=== PATIENT | female | born 1945 | race Two or more races ===

== ENCOUNTER → 2020-04-28 | Outpatient (CLI) | payer OTHER ==
[~2020-04-28] MED LIST: EVISTA60 MG
== END | disposition home or self-care (01) ==
LOC: RAD 16:01
PROVIDERS: ATTEND Family Medicine
DX: S30.0XXA Contusion of lower back and pelvis, initial encounter (principal); S43.001A Unspecified subluxation of right shoulder joint, initial encounter

== ENCOUNTER 2020-12-17 10:31 | Outpatient (CLI) | payer OTHER | END 2020-12-17 10:52 | disposition home or self-care (01) | LOC: SONOGRAMA 10:31 → MAMO-SONO 14:00 | PROVIDERS: ATTEND Family Medicine | DX: N10 Acute pyelonephritis (principal) ==

== ENCOUNTER 2024-01-30 07:58 | Outpatient (CLI) | payer OTHER ==
[2024-01-30 08:58] LABS: HEMATOCRIT 36.8 % (36.0-45.00); HEMOGLOBIN 12.9 g/dL (12.0-15.00); MEAN CELL VOLUME 85.4 fL (80.00-100.00); MEAN CORPUSCULAR HGB CONC 35.1 g/dl (32.0-36.0); PLATELET COUNT 324 K/uL (150-450); RED BLOOD COUNT 4.31 M/uL (4.00-6.00); RED CELL DISTRIBUTION WIDTH 12.9 % (11.5-14.5)
[2024-01-30 09:16] LABS: INR 1.02; PARTIAL THROMBOPLASTIN TIME 30.8 SECONDS (22.0-34.0); PROTHROMBIN TIME 10.7 SECONDS (9.0-11.5)
[2024-01-30 09:35] LABS: ALBUMIN 2.9 gm/dL (3.4-5.0); BILIRUBIN TOTAL 0.63 mg/dL (0.3-1.2); CALCIUM 8.7 mg/dL (8.5-10.1); CREATININE SERUM 0.57 mg/dL (0.55-1.02); GFR 102.85; GLOBULINA 3.2 G/DL (2.4-3.5); POTASSIUM 3.98 mEq/L (3.5-5.1); TOTAL PROTEIN 6.1 gm/dL (6.4-8.2)
== END 2024-01-30 08:08 | disposition home or self-care (01) ==
LOC: LAB 07:58
PROVIDERS: ATTEND Ophthalmology
DX: D68.8 Other specified coagulation defects (principal); H25.013 Cortical age-related cataract, bilateral; Z01.811 Encounter for preprocedural respiratory examination; I10 Essential (primary) hypertension

== ENCOUNTER 2024-07-26 19:29 | Emergency (ER) | payer OTHER ==
[~2024-07-26] VITALS: Ht 157.5 cm; Wt 49.9 kg
[2024-07-26] MEDS ORDERED: NORVASC2.5 M1 (19:35)
[2024-07-26] MEDS ORDERED: PLAVIX75 MG (19:35)
[2024-07-26] MEDS ORDERED: ZESTRIL2.5 MG (19:36)
[2024-07-26] MEDS ORDERED: TRAMADOL HCL 50 MG TABLET PO STA (23:06)
[2024-07-26] MEDS ORDERED: IBUprofen 100 MG/5 ML-120ML ML PO STA (23:12)
[2024-07-26] MEDS ORDERED: IBUprofen 20 MG/ML BLIST.PACK (5ML) PO ONE (23:20)
== END 2024-07-26 23:24 | disposition home or self-care (01) ==
LOC: ER 19:31
DX: S62.101A Fracture of unspecified carpal bone, right wrist, initial encounter for closed fracture (principal); W19.XXXA Unspecified fall, initial encounter; Y93.89 Activity, other specified; Y92.89 Other specified places as the place of occurrence of the external cause; Y99.8 Other external cause status; M25.531 Pain in right wrist

== ENCOUNTER 2024-11-12 10:24 | Outpatient (CLI) | payer OTHER ==
[~2024-11-12 10:24] MED LIST changes: +NORVASC2.5 M1; +PLAVIX75 MG; +ZESTRIL2.5 MG
== END 2024-11-12 10:30 | disposition home or self-care (01) ==
LOC: RAD 10:24
PROVIDERS: ATTEND Orthopaedic Surgery
DX: S52.571D Other intraarticular fracture of lower end of right radius, subsequent encounter for closed fracture with routine healing (principal)

== ENCOUNTER → 2025-06-25 | Emergency (ER) | payer OTHER ==
[~2025-06-25] VITALS: Ht 157.5 cm; Wt 54.4 kg
[~2025-06-25] MED LIST changes: +OXYBUTYNIN CHLOR5 MG PO; +SODIUM CHLORIDE 0.45 % 1,000 ML IV STA; +ZOLPIDEM TARTRA10 MG PO
[2025-06-25 11:22] LABS: BASO % 0.4 % (0.1-1.2); EOS # 0.07 (0.04-0.54); EOS % 0.9 % (0.7-7.0); LYMPH # 1.29 (1.18-3.74); LYMPH % 17.3 % (19.3-53.1); MEAN PLATELET VOLUME 8.70 fl (9.4-12.4); MONO # 0.68 (0.24-0.82); MONO % 9.1 % (4.7-12.5); NEUT # 5.37 (1.56-6.13); NEUT % 71.9 % (34.0-71.1); RED CELL DISTRIBUTION WIDTH 13.1 % (11.6-14.4)
[2025-06-25 11:37] LABS: INR 0.98
[2025-06-25 11:41] LABS: ALT/SGPT 42.0 U/L (12-78); AST/SGOT 32.0 U/L (15-37); BILIRUBIN TOTAL 0.43 mg/dL (0.3-1.2); BUN CREA RATIO 20.0 (7.0-25.0); CREATININE SERUM 0.75 mg/dL (0.55-1.02); GFR 74.73; GLOBULINA 3.9 G/DL (2.4-3.5); GLUCOSE FASTING 124.0 mg/dL (65-100); OSMOLALITY SERUM 285.0 MOSM/KG (275-295)
== END | disposition designated cancer center or children's hospital (05) ==
LOC: ER 10:18
PROVIDERS: General Practice
DX: I69.351 Hemiplegia and hemiparesis following cerebral infarction affecting right dominant side (principal); R53.1 Weakness; R42 Dizziness and giddiness